=== PATIENT | female | born 1970 | race Hispanic/Latino ===

== ENCOUNTER 2017-07-16 00:20 | Emergency (ER) | payer SELFPAY ==
[~2017-07-16] VITALS: Ht 157.5 cm; Wt 72.6 kg
--- NOTE | 2017-07-16 01:01 | Diagnostic Imaging Report ---
EXAMINATION: CHEST 2 VIEWS INDICATION: Cough COMPARISON: 03/28/2014 FINDINGS: TUBES and LINES: None. LUNGS: Lungs are well inflated. Lungs are clear. There is no evidence of pneumonia or pulmonary edema. PLEURA: No pleural effusion or pneumothorax. HEART AND MEDIASTINUM: The cardiomediastinal silhouette is unremarkable. BONES AND SOFT TISSUES: No acute osseous lesion. Soft tissues are unremarkable. UPPER ABDOMEN: No free air under the diaphragm. IMPRESSION: No acute thoracic abnormality. Signed by: Dr. Marcello Gilmore M.D. on 07/16/2017 12:57 AM
== END 2017-07-16 03:25 | disposition left against medical advice (07) ==
LOC: ER 00:20
DX: R05 Cough (principal)
CPT/HCPCS: 71020; 87400